=== PATIENT | female | born 1990 | race Caucasian/White ===

== ENCOUNTER 2022-05-01 12:42 | Emergency (ER) | payer MEDICAID ==
[~2022-05-01] VITALS: Ht 162.6 cm; Wt 79.4 kg
[2022-05-01 12:51] VITALS: BP 128/82
--- NOTE | 2022-05-01 13:00 | NUR ---
BIBA C/O 06/18 BODY ACHES S/P METH USE X TODAY. PMH: ANXIETY, BIPOLAR, DEPRESSION, PANIC ATTACKS, HUMERUS FRACTURE SURGERY
[2022-05-01] MEDS ORDERED: ACETAMINOPHEN 325 MG TAB PO ONE (13:25)
[2022-05-01] MEDS ORDERED: NAPR-1704 PO (13:31)
--- NOTE | 2022-05-01 15:06 | NUR ---
Patient discharged with v/s stable. Written and verbal after care instructions ABOUT MUSCLE PAIN AND STIMULANT USE DISORDER-METHAMPHETAMINES given and explained. Patient alert, oriented and verbalized understanding of instructions. Ambulatory with steady gait. All questions addressed prior to discharge. ID band removed. Patient advised to follow up with PMD. Rx of NAPROSYN given. Patient educated on indication of medication including possible reaction and side effects. Opportunity to ask questions provided and answered.
== END 2022-05-01 15:06 | disposition home or self-care (01) ==
LOC: MED 12:42
DX: M79.10 Myalgia, unspecified site (principal); F15.90 Other stimulant use, unspecified, uncomplicated; R07.9 Chest pain, unspecified; R06.02 Shortness of breath; F41.9 Anxiety disorder, unspecified; F31.9 Bipolar disorder, unspecified; Z72.89 Other problems related to lifestyle; Z98.890 Other specified postprocedural states
CPT/HCPCS: 99282